=== PATIENT | male | born 1970 | race Caucasian/White ===

== ENCOUNTER 2021-01-04 10:59 | Inpatient (IN) | payer OTHER ==
[2021-01-04] VITALS (26 sets, daily range): BP systolic 96–146; BP diastolic 61–92
[~2021-01-04] VITALS: Ht 170.2 cm; Wt 62.9 kg
[~2021-01-04 10:59] MED LIST: ALBU18; ALPR0.5T7; ATOR20TA50; PRED-188; THEO1TAB6; ZAFI1TAB3; [UNRECOGNIZED DRUG - CODE]
[2021-01-04] MEDS ORDERED: SODIUM CHLORIDE 0.9% 1,000 ML IVB ONE (11:00)
[2021-01-04] MEDS ORDERED: methylPREDNISolone SOD SUCC 125 MG/2 ML VL IV ONE (11:00)
[2021-01-04] MEDS ORDERED: levoFLOXacin 500 MG/100 ML PREMIX BAG IV ONE (11:00)
[2021-01-04 11:42] LABS: Mean Corpuscular Hgb Conc. 33.4 g/dL (32.0-36.0); Red Cell Distribution Width 16.5 % (11.8-14.3)
[2021-01-04 11:44] LABS: Hemoglobin 8.3 g/dL (13.5-17.5); Mean Corpuscular Hemoglobin 28.3 pg (28.0-32.0); Mean Corpuscular Volume 84.7 fL (80.0-100.0); Red Blood Cells 2.95 10^6/uL (4.5-5.90)
[2021-01-04 11:50] LABS: Platelet Count (auto) 811 10^3/uL (140-450); White Blood Cell 35.1 10^3/uL (4.4-10.8)
[2021-01-04 11:52] LABS: Basophils % (manual) 0 (0.0-2.0); Blast Cells 0; Eosinophils % (manual) 0 (0-7); Reactive Lymphocytes 0
[2021-01-04 11:59] LABS: Lactic Acid w/Reflex 3.8 mmol/L (0.4-2.0)
[2021-01-04] MEDS ORDERED: NOREPINEPHRINE 8 MG/250ML KIT 250 ML IV ONE ×2 (11:59→12:02)
[2021-01-04 12:09] LABS: Anion Gap 17 (5-15); Blood Urea Nitrogen 21 mg/dL (7-18); Calcium 8.2 mg/dL (8.5-10.1); Carbon Dioxide 18 mmol/L (21-32); Chloride 93 mmol/L (98-107); Glucose 119 mg/dL (74-106); Potassium 3.4 mmol/L (3.5-5.1); Sodium 128 mmol/L (136-145)
[2021-01-04] MEDS: NOREPINEPHRINE 8 MG/250ML KIT 250 ML IV SCH (12:15)
[2021-01-04] MEDS ORDERED: SODIUM CHLORIDE 0.9% 1,000 ML IV ONE ×2 (12:15→13:30)
[2021-01-04 12:19] LABS: Alanine Aminotransferase 9 U/L (16-61); Albumin 2.6 g/dL (3.4-5.0); Alkaline Phosphatase 91 U/L (45-117); Aspartate Aminotransferase 16 U/L (15-37); BUN/Creatinine Ratio 9.2; Bilirubin, Total 0.9 mg/dL (0.2-1.0); Blood Alcohol < 3.0 mg/dL (0-5); GFR African American 39 mL/min; GFR Non-African American 32 mL/min
[2021-01-04 12:53] LABS: Band Neutrophils % (manual) 5; Lymphocytes % (manual) 3 (10.0-50.0); Metamyelocytes % 2; Monocytes % (manual) 3 (0-12); Myelocytes % 3; Promyelocytes % 1
[2021-01-04] MEDS ORDERED: LINEZOLID IV SCH (13:30)
[2021-01-04] MEDS ORDERED: ONDANSETRON HCL 4 MG/2 ML VIAL IV PRN (13:30)
[2021-01-04] MEDS ORDERED: NITROGLYCERIN 0.4 MG SL TAB SL PRN (13:30)
[2021-01-04] MEDS: POTASSIUM CHL 20MEQ/100ML 100 ML IV SCH ×2 (14:17→15:51)
[2021-01-04 14:47] LABS: Hemoglobin 7.3 g/dL (13.5-17.5)
[2021-01-04 14:49] LABS: Hematocrit 22.2 % (41.0-53.0)
[2021-01-04] MEDS ORDERED: MEROPENEM 500MG IVPB 50 ML IV SCH (15:00)
[2021-01-04 15:06] LABS: Urine Bacteria FEW /hpf (None Seen); Urine Blood 1+ /uL (Negative); Urine Mucus FEW (None Seen); Urine Specific Gravity 1.004 (1.001-1.035); Urine WBC 4 /hpf (0 - 3)
[2021-01-04] MEDS: MEROPENEM 1GM IVPB 100 ML IV SCH (15:51)
[2021-01-04] MEDS: HYDROmorphone HCL 2 MG/ML VL IV PRN ×2 (16:38→21:55)
[2021-01-04] MEDS: LINEZOLID 600MG/300ML 300 ML IV SCH (18:00)
[2021-01-04 18:35] LABS: Magnesium 1.9 mg/dL (1.6-2.6); Phosphorus 3.8 mg/dL (2.5-4.90)
[2021-01-04 18:36] LABS: Albumin 2.4 g/dL (3.4-5.0); Calcium 7.7 mg/dL (8.5-10.1); Potassium 3.8 mmol/L (3.5-5.1)
[2021-01-04 18:38] LABS: Bilirubin, Total 0.6 mg/dL (0.2-1.0); Total Protein 5.8 g/dL (6.4-8.2)
[2021-01-04 18:54] LABS: Protein, Urine 24.1 mg/dL (0.0-11.9)
[2021-01-04] MEDS ORDERED: LORazepam 2MG/ML-1ML VIAL IV PRN (20:15)
[2021-01-04] MEDS ORDERED: ATORVASTATIN 20 MG TAB PO SCH (22:00)
[2021-01-04 22:16] LABS: Hematocrit 23.5 % (41.0-53.0); Hemoglobin 7.6 g/dL (13.5-17.5)
[2021-01-04 22:36] LABS: Cholesterol 142 mg/dL (< 200)
[2021-01-04] MEDS: BUDESONIDE (INHALATION) 0.5 MG/2 ML NEB NEB SCH (22:36)
[2021-01-04 22:39] LABS: HDL Cholesterol 60 mg/dL (40-59); LDL Cholesterol 64 mg/dL (< 100); Triglycerides 122 mg/dL (< 150)
[2021-01-04 22:44] LABS: Folate (Folic Acid) 23.43 ng/mL (5.38-24)
[2021-01-04] MEDS: LORazepam 2MG/ML-1ML VIAL IV PRN (23:31)
[2021-01-05] VITALS (97 sets, daily range): BP systolic 82–154; BP diastolic 57–94
[2021-01-05 01:27] LABS: Hematocrit 21.9 % (41.0-53.0)
[2021-01-05 01:29] LABS: Hemoglobin 7.2 g/dL (13.5-17.5)
[2021-01-05] MEDS: MEROPENEM 1GM IVPB 100 ML IV SCH ×3 (02:53→23:02)
[2021-01-05 05:39] LABS: Hematocrit 19.6 % (41.0-53.0); Mean Corpuscular Hemoglobin 28.8 pg (28.0-32.0); Mean Corpuscular Hgb Conc. 33.7 g/dL (32.0-36.0); Mean Corpuscular Volume 85.5 fL (80.0-100.0); Platelet Count (auto) 734 10^3/uL (140-450); Red Blood Cells 2.29 10^6/uL (4.5-5.90); Red Cell Distribution Width 16.1 % (11.8-14.3); White Blood Cell 21.4 10^3/uL (4.4-10.8)
[2021-01-05 05:57] LABS: Potassium 3.3 mmol/L (3.5-5.1)
[2021-01-05 06:02] LABS: Hemoglobin 6.6 g/dL (13.5-17.5)
[2021-01-05 06:04] LABS: Basophils % (manual) 0 (0.0-2.0); Blast Cells 0; Eosinophils % (manual) 0 (0-7); Promyelocytes % 0; Reactive Lymphocytes 0
[2021-01-05 06:09] LABS: Albumin 2.3 g/dL (3.4-5.0); BUN/Creatinine Ratio 15.8; Bilirubin, Total 0.3 mg/dL (0.2-1.0); Calcium 7.9 mg/dL (8.5-10.1); Total Protein 5.4 g/dL (6.4-8.2)
[2021-01-05] MEDS: LINEZOLID 600MG/300ML 300 ML IV SCH ×2 (06:11→18:00)
[2021-01-05] MEDS: BUDESONIDE (INHALATION) 0.5 MG/2 ML NEB NEB SCH ×2 (06:26→22:21)
[2021-01-05] MEDS: ALBUTEROL SULF 2.5 MG/0.5ML(0.5%) NEB SOLN NEB PRN (06:26)
[2021-01-05] MEDS: POTASSIUM CHL 20MEQ/100ML 100 ML IV SCH ×2 (08:00→11:30)
[2021-01-05 08:37] LABS: Band Neutrophils % (manual) 4; Lymphocytes % (manual) 1 (10.0-50.0); Metamyelocytes % 1; Monocytes % (manual) 3 (0-12); Myelocytes % 1
[2021-01-05] MEDS: HYDROmorphone HCL 2 MG/ML VL IV PRN ×3 (09:14→20:00)
[2021-01-05] MEDS ORDERED: PANTOPRAZOLE 40 MG/10 ML VIAL INJ IV SCH (10:00)
[2021-01-05] MEDS: NOREPINEPHRINE 8 MG/250ML KIT 250 ML IV SCH (12:15)
[2021-01-05] MEDS ORDERED: SODIUM CHLORIDE 0.9% 1,000 ML IV ONE (19:45)
[2021-01-05] MEDS: PANTOPRAZOLE 40 MG/10 ML VIAL INJ IV SCH (22:10)
[2021-01-05] MEDS: SUCRALFATE 1 GM/10 ML ORAL SUSP PO SCH (22:10)
[2021-01-05] MEDS: ATORVASTATIN 20 MG TAB PO SCH (22:10)
[2021-01-05] MEDS: LORazepam 2MG/ML-1ML VIAL IV PRN (22:11)
[2021-01-06] VITALS (96 sets, daily range): BP systolic 82–130; BP diastolic 51–86
[2021-01-06 01:41] LABS: Hematocrit 25.5 % (41.0-53.0); Hemoglobin 8.7 g/dL (13.5-17.5)
[2021-01-06 05:57] LABS: Basophils # (auto) 0 10 ^3/uL (0-0.2); Eosinophils # (auto) 0 10 ^3/uL (0-0.8); Hemoglobin 8.9 g/dL (13.5-17.5); Monocytes # (auto) 2.1 10 ^3/uL (0-1.3)
[2021-01-06 05:59] LABS: Basophils % (auto) 0.1 % (0.0-2.0); Hematocrit 26.9 % (41.0-53.0); Lymphocytes # (auto) 1.7 10 ^3/uL (0.4-5.4); Lymphocytes % (auto) 8.3 % (10.0-50.0); Mean Corpuscular Hemoglobin 28.9 pg (28.0-32.0); Mean Corpuscular Hgb Conc. 33.2 g/dL (32.0-36.0); Mean Corpuscular Volume 87.2 fL (80.0-100.0); Monocytes % (auto) 10.4 % (0.0-12.0); Neutrophils # (auto) 16.4 10 ^3/uL (1.6-8.6); Neutrophils % (auto) 81.2 % (37.0-80.0); Nucleated Red Blood Cells % 0.1 %; Platelet Count (auto) 639 10^3/uL (140-450); Red Blood Cells 3.08 10^6/uL (4.5-5.90); Red Cell Distribution Width 15.5 % (11.8-14.3); White Blood Cell 20.2 10^3/uL (4.4-10.8)
[2021-01-06] MEDS: LINEZOLID 600MG/300ML 300 ML IV SCH ×2 (06:23→18:01)
[2021-01-06 06:24] LABS: Potassium 3.9 mmol/L (3.5-5.1)
[2021-01-06 06:38] LABS: Albumin 2.1 g/dL (3.4-5.0); Bilirubin, Total 0.7 mg/dL (0.2-1.0); Calcium 7.9 mg/dL (8.5-10.1); Phosphorus 2.6 mg/dL (2.5-4.90); Total Protein 4.9 g/dL (6.4-8.2)
[2021-01-06] MEDS: SUCRALFATE 1 GM/10 ML ORAL SUSP PO SCH ×4 (07:06→21:57)
[2021-01-06] MEDS: PANTOPRAZOLE 40 MG/10 ML VIAL INJ IV SCH ×2 (09:02→21:56)
[2021-01-06] MEDS: MEROPENEM 1GM IVPB 100 ML IV SCH ×2 (09:02→17:21)
[2021-01-06] MEDS: HYDROmorphone HCL 2 MG/ML VL IV PRN ×4 (09:03→22:38)
[2021-01-06] MEDS: BUDESONIDE (INHALATION) 0.5 MG/2 ML NEB NEB SCH ×2 (09:46→22:01)
[2021-01-06] MEDS: NOREPINEPHRINE 8 MG/250ML KIT 250 ML IV SCH (12:15)
[2021-01-06] MEDS: ATORVASTATIN 20 MG TAB PO SCH (21:56)
[2021-01-06] MEDS: LORazepam 2MG/ML-1ML VIAL IV PRN (21:57)
[2021-01-06] MEDS: ALBUTEROL SULF 2.5 MG/0.5ML(0.5%) NEB SOLN NEB PRN (22:01)
[2021-01-07] VITALS (84 sets, daily range): BP systolic 80–123; BP diastolic 48–83
[2021-01-07] MEDS: MEROPENEM 1GM IVPB 100 ML IV SCH ×3 (02:20→17:51)
[2021-01-07] MEDS: HYDROmorphone HCL 2 MG/ML VL IV PRN ×5 (03:45→22:19)
[2021-01-07 05:44] LABS: Hematocrit 27.4 % (41.0-53.0); Hemoglobin 9.1 g/dL (13.5-17.5)
[2021-01-07 06:13] LABS: Potassium 3.6 mmol/L (3.5-5.1)
[2021-01-07] MEDS: BUDESONIDE (INHALATION) 0.5 MG/2 ML NEB NEB SCH ×2 (06:19→18:43)
[2021-01-07] MEDS: LINEZOLID 600MG/300ML 300 ML IV SCH ×2 (06:25→16:48)
[2021-01-07] MEDS: SUCRALFATE 1 GM/10 ML ORAL SUSP PO SCH (06:25)
[2021-01-07 06:35] LABS: BUN/Creatinine Ratio 12.1; Calcium 8.2 mg/dL (8.5-10.1)
[2021-01-07] MEDS ORDERED: COLCHICINE 0.6 MG CAP PO ONE (09:45)
[2021-01-07] MEDS ORDERED: SILVER SULFADIAZINE 1 % TOPICAL CREAM 50GM TOP SCH (10:00)
[2021-01-07] MEDS: ALBUMIN 25% 100 ML IV SCH ×2 (10:56→16:47)
[2021-01-07] MEDS: LIDOCAINE HCL 5 % TOP OINT 35 GM TOP SCH (10:56)
[2021-01-07] MEDS: NOREPINEPHRINE 8 MG/250ML KIT 250 ML IV SCH (12:15)
[2021-01-07] MEDS: SUCRALFATE 1 GM TAB PO SCH ×3 (14:03→21:35)
[2021-01-07] MEDS ORDERED: FUROSEMIDE 20 MG/2 ML VIAL IV ONE (15:00)
[2021-01-07] MEDS: ALBUTEROL SULF 2.5 MG/0.5ML(0.5%) NEB SOLN NEB PRN (18:43)
[2021-01-07] MEDS: LORazepam 2MG/ML-1ML VIAL IV PRN (20:00)
[2021-01-07] MEDS: ATORVASTATIN 20 MG TAB PO SCH (21:35)
[2021-01-07] MEDS: PANTOPRAZOLE 40 MG TAB PO SCH (21:36)
[2021-01-08] VITALS (14 sets, daily range): BP systolic 86–105; BP diastolic 52–72
[2021-01-08] MEDS: ALBUMIN 25% 100 ML IV SCH (01:49)
[2021-01-08] MEDS: MEROPENEM 1GM IVPB 100 ML IV SCH ×3 (01:50→21:34)
[2021-01-08] MEDS: HYDROmorphone HCL 2 MG/ML VL IV PRN ×4 (04:10→20:23)
[2021-01-08] MEDS: LINEZOLID 600MG/300ML 300 ML IV SCH ×2 (06:24→18:56)
[2021-01-08] MEDS ORDERED: SUCRALFATE 1 GM TAB PO ONE (06:45)
[2021-01-08] MEDS: SUCRALFATE 1 GM/10 ML ORAL SUSP PO SCH ×4 (06:50→21:34)
[2021-01-08 07:23] LABS: Hematocrit 22.6 % (41.0-53.0); Hemoglobin 7.6 g/dL (13.5-17.5)
[2021-01-08 08:01] LABS: BUN/Creatinine Ratio 18.9; Uric Acid 7.5 mg/dL (3.5-7.2)
[2021-01-08 08:03] LABS: Potassium 2.8 mmol/L (3.5-5.1)
[2021-01-08] MEDS ORDERED: POTASSIUM CHLORIDE 40 MEQ, LIDOCAINE 1% (LOCAL ANESTH.) 4 ML in SODIUM CHL 0.9% 250 ML IV ONE (08:45)
[2021-01-08] MEDS: PANTOPRAZOLE 40 MG TAB PO SCH ×2 (10:00→21:33)
[2021-01-08 10:03] LABS: Eosinophils # (auto) 0.1 10 ^3/uL (0-0.8); Hemoglobin 8.6 g/dL (13.5-17.5); Lymphocytes # (auto) 1.6 10 ^3/uL (0.4-5.4); Lymphocytes % (auto) 10.9 % (10.0-50.0); Monocytes # (auto) 1.3 10 ^3/uL (0-1.3)
[2021-01-08 10:05] LABS: Basophils # (auto) 0.3 10 ^3/uL (0-0.2); Basophils % (auto) 2.2 % (0.0-2.0); Eosinophils % (auto) 0.5 % (0.0-7.0); Mean Corpuscular Hemoglobin 29.4 pg (28.0-32.0); Mean Corpuscular Hgb Conc. 34.3 g/dL (32.0-36.0); Mean Corpuscular Volume 85.6 fL (80.0-100.0); Monocytes % (auto) 9.2 % (0.0-12.0); Neutrophils % (auto) 77.2 % (37.0-80.0); Platelet Count (auto) 523 10^3/uL (140-450); Red Blood Cells 2.92 10^6/uL (4.5-5.90); Red Cell Distribution Width 15.8 % (11.8-14.3); White Blood Cell 14.3 10^3/uL (4.4-10.8)
[2021-01-08] MEDS: LORazepam 2MG/ML-1ML VIAL IV PRN ×2 (10:06→21:34)
[2021-01-08] MEDS: FUROSEMIDE 20 MG/2 ML VIAL IV SCH (10:10)
[2021-01-08] MEDS: BUDESONIDE (INHALATION) 0.5 MG/2 ML NEB NEB SCH ×2 (10:19→18:28)
[2021-01-08 10:37] LABS: Calcium 7.9 mg/dL (8.5-10.1); Potassium 3.1 mmol/L (3.5-5.1)
[2021-01-08 10:41] LABS: BUN/Creatinine Ratio 13.6
[2021-01-08] MEDS: NOREPINEPHRINE 8 MG/250ML KIT 250 ML IV SCH (11:37)
[2021-01-08] MEDS: ALBUTEROL SULF 2.5 MG/0.5ML(0.5%) NEB SOLN NEB PRN (18:27)
[2021-01-08] MEDS: ATORVASTATIN 20 MG TAB PO SCH (21:33)
[2021-01-09] MEDS: HYDROmorphone HCL 2 MG/ML VL IV PRN ×6 (00:29→21:57)
[2021-01-09 05:00] VITALS: BP 101/68
[2021-01-09] MEDS: BUDESONIDE (INHALATION) 0.5 MG/2 ML NEB NEB SCH ×2 (05:44→22:20)
[2021-01-09] MEDS: LINEZOLID 600MG/300ML 300 ML IV SCH ×2 (06:14→17:30)
[2021-01-09] MEDS: MEROPENEM 1GM IVPB 100 ML IV SCH ×3 (06:14→21:55)
[2021-01-09] MEDS: SUCRALFATE 1 GM/10 ML ORAL SUSP PO SCH ×4 (06:15→21:55)
[2021-01-09 07:51] LABS: Basophils # (auto) 0.1 10 ^3/uL (0-0.2); Eosinophils # (auto) 0.1 10 ^3/uL (0-0.8); Hemoglobin 8.8 g/dL (13.5-17.5)
[2021-01-09 07:53] LABS: Basophils % (auto) 0.7 % (0.0-2.0); Eosinophils % (auto) 0.9 % (0.0-7.0); Lymphocytes # (auto) 1.7 10 ^3/uL (0.4-5.4); Lymphocytes % (auto) 10.7 % (10.0-50.0); Mean Corpuscular Hemoglobin 29.3 pg (28.0-32.0); Mean Corpuscular Hgb Conc. 33.9 g/dL (32.0-36.0); Mean Corpuscular Volume 86.3 fL (80.0-100.0); Monocytes # (auto) 1.3 10 ^3/uL (0-1.3); Monocytes % (auto) 7.9 % (0.0-12.0); Neutrophils # (auto) 12.9 10 ^3/uL (1.6-8.6); Neutrophils % (auto) 79.8 % (37.0-80.0); Platelet Count (auto) 504 10^3/uL (140-450); Red Blood Cells 3.01 10^6/uL (4.5-5.90); Red Cell Distribution Width 15.9 % (11.8-14.3); White Blood Cell 16.1 10^3/uL (4.4-10.8)
[2021-01-09 08:04] LABS: Calcium 7.8 mg/dL (8.5-10.1)
[2021-01-09 08:07] LABS: BUN/Creatinine Ratio 15.8; Magnesium 1.4 mg/dL (1.6-2.6)
[2021-01-09 09:00] VITALS: BP 106/76
[2021-01-09] MEDS ORDERED: COLCHICINE 0.6 MG CAP PO ONE (10:15)
[2021-01-09] MEDS: FUROSEMIDE 20 MG/2 ML VIAL IV SCH (10:27)
[2021-01-09] MEDS: PANTOPRAZOLE 40 MG TAB PO SCH ×2 (10:28→21:56)
[2021-01-09] MEDS ORDERED: POTASSIUM CHLORIDE 40 MEQ, LIDOCAINE 1% (LOCAL ANESTH.) 4 ML in SODIUM CHL 0.9% 250 ML IV ONE (10:30)
[2021-01-09] MEDS ORDERED: POTASSIUM PHOSPHATE 26.4 MEQ in SODIUM CHL 0.9% 100 ML IV ONE (10:30)
[2021-01-09] MEDS: MAGNESIUM SULFATE 1GM/100ML 100 ML IV SCH ×3 (11:30→17:29)
[2021-01-09] MEDS: LIDOCAINE HCL 5 % TOP OINT 35 GM TOP SCH (11:31)
[2021-01-09 13:00] VITALS: BP 99/70
[2021-01-09] MEDS ORDERED: ERGOCALCIFEROL 50,000 UNIT(1.25MG) CAP PO SCH (14:45)
[2021-01-09 17:00] VITALS: BP 110/70
[2021-01-09] MEDS: ATORVASTATIN 20 MG TAB PO SCH (21:56)
[2021-01-09 22:03] VITALS: BP 101/68
[2021-01-09] MEDS: LORazepam 2MG/ML-1ML VIAL IV PRN (23:03)
[2021-01-10] MEDS: HYDROmorphone HCL 2 MG/ML VL IV PRN ×4 (01:58→18:15)
[2021-01-10 04:45] VITALS: BP 101/61
[2021-01-10] MEDS: MEROPENEM 1GM IVPB 100 ML IV SCH ×2 (06:33→16:07)
[2021-01-10] MEDS: SUCRALFATE 1 GM/10 ML ORAL SUSP PO SCH ×2 (06:34→11:45)
[2021-01-10] MEDS: LINEZOLID 600MG/300ML 300 ML IV SCH (06:34)
[2021-01-10 07:13] LABS: Basophils # (auto) 0.1 10 ^3/uL (0-0.2); Eosinophils # (auto) 0.3 10 ^3/uL (0-0.8); Eosinophils % (auto) 1.8 % (0.0-7.0); Lymphocytes # (auto) 1.5 10 ^3/uL (0.4-5.4)
[2021-01-10 07:23] LABS: Hematocrit 26.4 % (41.0-53.0); Hemoglobin 8.9 g/dL (13.5-17.5); Lymphocytes % (auto) 10.5 % (10.0-50.0); Mean Corpuscular Hemoglobin 29.1 pg (28.0-32.0); Mean Corpuscular Hgb Conc. 33.8 g/dL (32.0-36.0); Mean Corpuscular Volume 86.2 fL (80.0-100.0); Monocytes # (auto) 1.1 10 ^3/uL (0-1.3); Monocytes % (auto) 7.3 % (0.0-12.0); Neutrophils # (auto) 11.5 10 ^3/uL (1.6-8.6); Neutrophils % (auto) 79.4 % (37.0-80.0); Platelet Count (auto) 484 10^3/uL (140-450); Red Blood Cells 3.07 10^6/uL (4.5-5.90); Red Cell Distribution Width 15.9 % (11.8-14.3); White Blood Cell 14.5 10^3/uL (4.4-10.8)
[2021-01-10 07:24] LABS: BUN/Creatinine Ratio 14.7; Calcium 7.8 mg/dL (8.5-10.1); Magnesium 2.2 mg/dL (1.6-2.6); Phosphorus 2.2 mg/dL (2.5-4.90); Potassium 3.2 mmol/L (3.5-5.1)
[2021-01-10 07:41] VITALS: BP 101/61
[2021-01-10 09:00] VITALS: BP 109/73
[2021-01-10] MEDS ORDERED: MAGNESIUM OXIDE 400 MG TAB PO SCH (10:00)
[2021-01-10] MEDS ORDERED: COLCHICINE 0.6 MG CAP PO SCH (10:00)
[2021-01-10] MEDS: BUDESONIDE (INHALATION) 0.5 MG/2 ML NEB NEB SCH (10:08)
[2021-01-10] MEDS: ALBUTEROL SULF 2.5 MG/0.5ML(0.5%) NEB SOLN NEB PRN (10:08)
[2021-01-10] MEDS ORDERED: POTASSIUM PHOSPHATE 26.4 MEQ in SODIUM CHL 0.9% 100 ML IV ONE (10:15)
[2021-01-10] MEDS: PANTOPRAZOLE 40 MG TAB PO SCH (11:44)
[2021-01-10] MEDS: FUROSEMIDE 20 MG/2 ML VIAL IV SCH (11:44)
[2021-01-10] MEDS: LORazepam 2MG/ML-1ML VIAL IV PRN (16:10)
[2021-01-10 16:56] VITALS: BP 106/72
== END 2021-01-10 18:44 | DRG 871 ==
LOC: ER 10:59 → EDBD 10:59 → TELE 11:00 → DOU IN ICU 17:25 → TELE-CENTR 01-08 13:56
PROVIDERS: ADMIT Family Medicine; ATTEND Internal Medicine
PROC: 06HY33Z Insertion of Infusion Device into Lower Vein, Percutaneous Approach (ICD-10-PCS; 2021-01-04)
PROC: 4A143B0 Monitoring of Venous Pressure, Central, Percutaneous Approach (ICD-10-PCS; 2021-01-04)
PROC: 30233N1 Transfusion of Nonautologous Red Blood Cells into Peripheral Vein, Percutaneous Approach (ICD-10-PCS; principal; 2021-01-05)
DX: A41.9 Sepsis, unspecified organism (principal); R65.21 Severe sepsis with septic shock; I21.A1 Myocardial infarction type 2; G92 Toxic encephalopathy; K26.4 Chronic or unspecified duodenal ulcer with hemorrhage; N17.0 Acute kidney failure with tubular necrosis; E87.1 Hypo-osmolality and hyponatremia; E87.2 Acidosis; J96.10 Chronic respiratory failure, unspecified whether with hypoxia or hypercapnia; D62 Acute posthemorrhagic anemia; E44.0 Moderate protein-calorie malnutrition; J98.11 Atelectasis; I13.0 Hypertensive heart and chronic kidney disease with heart failure and stage 1 through stage 4 chronic kidney disease, or unspecified chronic kidney disease; E87.6 Hypokalemia; E87.8 Other disorders of electrolyte and fluid balance, not elsewhere classified; Z20.822 Contact with and (suspected) exposure to COVID-19; D47.3 Essential (hemorrhagic) thrombocythemia; Z86.73 Personal history of transient ischemic attack (TIA), and cerebral infarction without residual deficits; E55.9 Vitamin D deficiency, unspecified; E78.5 Hyperlipidemia, unspecified; F17.210 Nicotine dependence, cigarettes, uncomplicated; G89.29 Other chronic pain; I50.9 Heart failure, unspecified; K21.00 Gastro-esophageal reflux disease with esophagitis, without bleeding; K29.70 Gastritis, unspecified, without bleeding; E83.42 Hypomagnesemia; F41.9 Anxiety disorder, unspecified; M19.90 Unspecified osteoarthritis, unspecified site; T38.0X5A Adverse effect of glucocorticoids and synthetic analogues, initial encounter; M81.0 Age-related osteoporosis without current pathological fracture; E11.22 Type 2 diabetes mellitus with diabetic chronic kidney disease; K29.80 Duodenitis without bleeding; E11.42 Type 2 diabetes mellitus with diabetic polyneuropathy; K44.9 Diaphragmatic hernia without obstruction or gangrene; M06.9 Rheumatoid arthritis, unspecified; M10.9 Gout, unspecified; Z79.52 Long term (current) use of systemic steroids; Z79.899 Other long term (current) drug therapy; Z82.49 Family history of ischemic heart disease and other diseases of the circulatory system; Z83.3 Family history of diabetes mellitus; Z87.442 Personal history of urinary calculi; Z88.5 Allergy status to narcotic agent; Z88.6 Allergy status to analgesic agent; Z88.8 Allergy status to other drugs, medicaments and biological substances; Z88.2 Allergy status to sulfonamides; Y92.89 Other specified places as the place of occurrence of the external cause; Z68.21 Body mass index [BMI] 21.0-21.9, adult; N18.32 Chronic kidney disease, stage 3b; J44.9 Chronic obstructive pulmonary disease, unspecified
CPT/HCPCS: 36415; 36556; 36600; 51702; 70450; 71045; 71250; 73110; 74176; 76775; 80048; 80053; 80061; 80198; 80307; 80320; 81001; 82306; 82570; 82607; 82728; 82746; 82805; 83605; 83735; 83880; 84100; 84132; 84156; 84300; 84443; 84484; 84550; 85007; 85014; 85018; 85025; 85027; 85379; 86141; 86850; 86900; 86901; 86920; 87040; 87081; 87086; 87205; 87426; 93005; 93306; 93886; 94640; 95819; 96365; 96366; 96367; 96368; 96375; 99291; C9113; G0378; J1956; J2001; J2185; J3480; P9047

== ENCOUNTER 2021-01-30 08:17 | Inpatient (IN) | payer OTHER ==
[2021-01-30] VITALS (48 sets, daily range): BP systolic 63–123; BP diastolic 43–83
[~2021-01-30] VITALS: Ht 165.1 cm; Wt 65.8 kg
[2021-01-30] MEDS ORDERED: SUCCINYLCHOLINE CHLORIDE 20 MG/ML 10ML VIAL IV ONE ×3 (08:22→08:45)
[2021-01-30] MEDS ORDERED: ETOMIDATE (2MG/ML) 20ML VIAL IV ONE ×3 (08:22→08:45)
[2021-01-30] MEDS ORDERED: MIDAZOLAM DRIP 50 mg/50mL 50 ML IV ONE (08:25)
[2021-01-30] MEDS ORDERED: NOREPINEPHRINE 8 MG/250ML KIT 250 ML IV ONE (08:25)
[2021-01-30] MEDS: MIDAZOLAM DRIP 50 mg/50mL 50 ML IV SCH ×4 (08:40→17:40)
[2021-01-30] MEDS: NOREPINEPHRINE 8 MG/250ML KIT 250 ML IV SCH ×3 (08:40→17:08)
[2021-01-30] MEDS ORDERED: NOREPINEPHRINE 8 MG/250ML KIT 250 ML IV SCH (08:45)
[2021-01-30] MEDS ORDERED: MIDAZOLAM DRIP 50 mg/50mL 50 ML IV SCH (08:45)
[2021-01-30] MEDS ORDERED: SODIUM CHLORIDE 0.9% 1,000 ML IV ONE ×3 (09:00→11:45)
[2021-01-30] MEDS ORDERED: AZITHROMYCIN 500MG/ 250ML 250 ML IV ONE (09:00)
[2021-01-30] MEDS ORDERED: cefTRIAXone 1GM/50ML D5W 50 ML IV ONE (09:00)
[2021-01-30 09:31] LABS: Mean Corpuscular Volume 89.3 fL (80.0-100.0)
[2021-01-30 09:34] LABS: Hematocrit 27.8 % (41.0-53.0); Hemoglobin 8.6 g/dL (13.5-17.5); Mean Corpuscular Hemoglobin 27.6 pg (28.0-32.0); Mean Corpuscular Hgb Conc. 30.8 g/dL (32.0-36.0); Red Blood Cells 3.11 10^6/uL (4.5-5.90); Red Cell Distribution Width 17.8 % (11.8-14.3)
[2021-01-30 09:49] LABS: Calcium 7.9 mg/dL (8.5-10.1); Magnesium 2.5 mg/dL (1.6-2.6)
[2021-01-30 09:50] LABS: INR 1.79 (0.9-1.15); Partial Thromboplastin Time 30.6 sec (23.0-31.2)
[2021-01-30 09:52] LABS: White Blood Cell 40.3 10^3/uL (4.4-10.8)
[2021-01-30 09:53] LABS: Platelet Count (auto) 975 10^3/uL (140-450)
[2021-01-30 09:54] LABS: Basophils % (manual) 0 (0.0-2.0); Blast Cells 0; Eosinophils % (manual) 0 (0-7); Promyelocytes % 0; Reactive Lymphocytes 0
[2021-01-30 09:56] LABS: BUN/Creatinine Ratio 5.8; Bilirubin, Total 0.4 mg/dL (0.2-1.0); Total Protein 5.1 g/dL (6.4-8.2)
[2021-01-30 09:59] LABS: Urine Bacteria FEW /hpf (None Seen); Urine Blood 1+ /uL (Negative); Urine Budding Yeast OCCASIONAL /hpf (None Seen); Urine Hyaline Cast FEW /lpf (0 - 2); Urine Specific Gravity 1.017 (1.001-1.035); Urine Sperm PRESENT /hpf (None Seen); Urine WBC 138 /hpf (0 - 3)
[2021-01-30] MEDS ORDERED: PANTOPRAZOLE 40mg/50ML NS AE 50 ML IV ONE (10:00)
[2021-01-30 10:02] LABS: Lactic Acid w/Reflex 5.7 mmol/L (0.4-2.0)
[2021-01-30 10:06] LABS: Potassium 5.8 mmol/L (3.5-5.1)
[2021-01-30] MEDS: PHENYLEPHRINE IV 250 ML IV SCH ×4 (10:07→18:54)
[2021-01-30] MEDS ORDERED: ALBUTEROL SULF 2.5 MG/0.5ML(0.5%) NEB SOLN NEB ONE (10:30)
[2021-01-30] MEDS ORDERED: DEXTROSE (50%) 50ML SYRG IV ONE (10:30)
[2021-01-30] MEDS ORDERED: SODIUM ZIRCONIUM CYCL 10 GM PAK PO ONE (10:30)
[2021-01-30] MEDS ORDERED: CALCIUM GLUC 1,000mg/50ml-NS 50 ML IV ONE (10:30)
[2021-01-30] MEDS ORDERED: InsuLIN REG 1unit/0.01ml Soln (100units/ml) IV ONE (10:30)
[2021-01-30] MEDS ORDERED: SODIUM BICARBONATE 8.4% INJ 50ML SYRINGE IV ONE (10:30)
[2021-01-30] MEDS ORDERED: FUROSEMIDE 20 MG/2 ML VIAL IV ONE (10:30)
[2021-01-30] MEDS ORDERED: VANCOMYCIN PER PHARMACY 0 MG IV SCH (11:15)
[2021-01-30] MEDS ORDERED: VANCOMYCIN 1GM/250ML 250 ML IV ONE (11:30)
[2021-01-30] MEDS: VASOPRESSIN 50 UNITS in D5W 5% 247.5 ML IV SCH (11:32)
[2021-01-30 11:36] LABS: Band Neutrophils % (manual) 10; Lymphocytes % (manual) 3 (10.0-50.0); Metamyelocytes % 1; Monocytes % (manual) 5 (0-12); Myelocytes % 1
[2021-01-30] MEDS ORDERED: ENOXAPARIN SOD 60 MG/0.6 ML SYRINGE SC ONE (12:15)
[2021-01-30] MEDS ORDERED: NITROGLYCERIN 0.4 MG SL TAB SL PRN (12:30)
[2021-01-30] MEDS ORDERED: SODIUM BICARBONATE 50ML VIAL 150 ML in D5W 5% 1,000 ML IV ONE (12:30)
[2021-01-30] MEDS ORDERED: MORPHINE SULF INJ 2 MG/ML SYRINGE 1ML IV PRN (12:30)
[2021-01-30] MEDS: EPINEPHrine HCL 250 ML IV SCH (12:30)
[2021-01-30 13:57] LABS: Calcium 7.7 mg/dL (8.5-10.1); Potassium 4.5 mmol/L (3.5-5.1)
[2021-01-30] MEDS: DOXYCYCLINE 100MG/250ML 250 ML IV SCH (14:30)
[2021-01-30] MEDS: HYDROCORTISONE SOD SUCC 100 MG/2ML INJ VIAL IV SCH ×2 (14:30→21:33)
[2021-01-30] MEDS: fentaNYL Drip 2500mCg/250mlNS 250 ML IV SCH (15:22)
[2021-01-30 16:36] LABS: Hematocrit 30.4 % (41.0-53.0); Hemoglobin 9.2 g/dL (13.5-17.5)
[2021-01-31] VITALS (105 sets, daily range): BP systolic 84–137; BP diastolic 48–87
[2021-01-31] MEDS: DOXYCYCLINE 100MG/250ML 250 ML IV SCH ×2 (00:21→11:09)
[2021-01-31] MEDS: NOREPINEPHRINE 8 MG/250ML KIT 250 ML IV SCH ×4 (00:22→13:58)
[2021-01-31] MEDS: MIDAZOLAM DRIP 50 mg/50mL 50 ML IV SCH ×5 (00:22→14:50)
[2021-01-31] MEDS: PHENYLEPHRINE IV 250 ML IV SCH ×6 (02:13→18:03)
[2021-01-31 04:51] LABS: Hematocrit 27.8 % (41.0-53.0); Hemoglobin 8.6 g/dL (13.5-17.5); Mean Corpuscular Hemoglobin 26.8 pg (28.0-32.0); Mean Corpuscular Hgb Conc. 30.8 g/dL (32.0-36.0); Mean Corpuscular Volume 86.9 fL (80.0-100.0); Platelet Count (auto) 604 10^3/uL (140-450)
[2021-01-31 04:56] LABS: White Blood Cell 52.7 10^3/uL (4.4-10.8)
[2021-01-31 04:57] LABS: Eosinophils % (manual) 0 (0-7)
[2021-01-31 04:58] LABS: Basophils % (manual) 0 (0.0-2.0); Blast Cells 0; Promyelocytes % 0; Reactive Lymphocytes 0
[2021-01-31 05:04] LABS: Albumin 1.7 g/dL (3.4-5.0); BUN/Creatinine Ratio 7.8; Calcium 6.9 mg/dL (8.5-10.1); Potassium 3.6 mmol/L (3.5-5.1)
[2021-01-31 05:11] LABS: Bilirubin, Total 0.2 mg/dL (0.2-1.0); Total Protein 4.8 g/dL (6.4-8.2)
[2021-01-31] MEDS: HYDROCORTISONE SOD SUCC 100 MG/2ML INJ VIAL IV SCH ×3 (05:29→22:00)
[2021-01-31 05:54] LABS: Band Neutrophils % (manual) 47; Lymphocytes % (manual) 5 (10.0-50.0); Metamyelocytes % 1; Monocytes % (manual) 5 (0-12); Myelocytes % 2
[2021-01-31] MEDS ORDERED: cefTRIAXone 1GM/50ML D5W 50 ML IV SCH (09:00)
[2021-01-31] MEDS: SODIUM CHLORIDE 0.9% 1,000 ML IV SCH ×2 (09:43→18:02)
[2021-01-31] MEDS ORDERED: ENOXAPARIN SOD 30 MG/0.3 ML SYRINGE SC SCH (10:00)
[2021-01-31] MEDS ORDERED: DEXTROSE (50%) 50ML SYRG IV PRN (10:30)
[2021-01-31] MEDS ORDERED: ENOXAPARIN SOD 100 MG/1 ML SYRINGE SC ONE (10:30)
[2021-01-31] MEDS ORDERED: ENOXAPARIN SOD 80 MG/0.8ML SYRINGE SC ONE (10:45)
[2021-01-31] MEDS: VASOPRESSIN 50 UNITS in D5W 5% 247.5 ML IV SCH (11:00)
[2021-01-31] MEDS: ACCU-CHEK COMFORT CURVE STRIP VI SCH ×3 (11:24→20:00)
[2021-01-31] MEDS: InsuLIN REG 1unit/0.01ml Soln (100units/ml) SC SCH ×3 (11:26→20:00)
[2021-01-31 11:55] LABS: Lactic Acid w/Reflex 3.1 mmol/L (0.4-2.0)
[2021-01-31] MEDS: EPINEPHrine HCL 250 ML IV SCH (12:30)
[2021-01-31] MEDS: fentaNYL Drip 2500mCg/250mlNS 250 ML IV SCH (14:45)
[2021-01-31] MEDS ORDERED: FLUCONAZOLE 200MG/100ML 100 ML IV ONE (17:30)
[2021-01-31] MEDS: VANCOMYCIN HCL 125MG/5ML ORAL SOL PO SCH ×2 (17:48→22:00)
[2021-01-31 18:51] LABS: Lactic Acid w/Reflex 2.5 mmol/L (0.4-2.0)
[2021-01-31] MEDS: metroNIDAZOLE 500MG/100ML 100 ML IV SCH (22:00)
[2021-01-31] MEDS: ESOMEPRAZOLE 40 MG/5ml VIAL INJ IV SCH (22:00)
[2021-01-31] MEDS: MEROPENEM 500MG IVPB 50 ML IV SCH (22:01)
[2021-02-01] VITALS (104 sets, daily range): BP systolic 80–141; BP diastolic 49–87
[2021-02-01] MEDS: MIDAZOLAM DRIP 50 mg/50mL 50 ML IV SCH ×8 (00:12→23:24)
[2021-02-01] MEDS: ACCU-CHEK COMFORT CURVE STRIP VI SCH ×6 (00:13→23:47)
[2021-02-01] MEDS: NOREPINEPHRINE 8 MG/250ML KIT 250 ML IV SCH ×5 (03:22→21:05)
[2021-02-01] MEDS: InsuLIN REG 1unit/0.01ml Soln (100units/ml) SC SCH ×6 (03:50→23:47)
[2021-02-01 04:27] LABS: Hematocrit 24.4 % (41.0-53.0); Mean Corpuscular Hemoglobin 28.1 pg (28.0-32.0); Mean Corpuscular Hgb Conc. 32.6 g/dL (32.0-36.0); Platelet Count (auto) 426 10^3/uL (140-450); Red Blood Cells 2.83 10^6/uL (4.5-5.90); Red Cell Distribution Width 17.7 % (11.8-14.3)
[2021-02-01 04:45] LABS: Calcium 6.3 mg/dL (8.5-10.1); Potassium 3.4 mmol/L (3.5-5.1)
[2021-02-01 04:51] LABS: Albumin 1.5 g/dL (3.4-5.0); BUN/Creatinine Ratio 10.6; Bilirubin, Total 0.3 mg/dL (0.2-1.0); Magnesium 1.4 mg/dL (1.6-2.6); Phosphorus 4.1 mg/dL (2.5-4.90); Total Protein 4.4 g/dL (6.4-8.2)
[2021-02-01 05:18] LABS: White Blood Cell 37.1 10^3/uL (4.4-10.8)
[2021-02-01 05:19] LABS: Basophils % (manual) 0 (0.0-2.0); Blast Cells 0; Eosinophils % (manual) 0 (0-7); Promyelocytes % 0; Reactive Lymphocytes 0
[2021-02-01] MEDS: SODIUM CHLORIDE 0.9% 1,000 ML IV SCH (05:36)
[2021-02-01 05:58] LABS: Myelocytes % 1
[2021-02-01 05:59] LABS: Metamyelocytes % 1; Monocytes % (manual) 3 (0-12)
[2021-02-01 06:00] LABS: Band Neutrophils % (manual) 22; Lymphocytes % (manual) 1 (10.0-50.0)
[2021-02-01] MEDS: VANCOMYCIN HCL 125MG/5ML ORAL SOL PO SCH ×4 (06:10→21:06)
[2021-02-01] MEDS: metroNIDAZOLE 500MG/100ML 100 ML IV SCH ×3 (06:10→21:05)
[2021-02-01] MEDS: HYDROCORTISONE SOD SUCC 100 MG/2ML INJ VIAL IV SCH ×3 (06:10→21:05)
[2021-02-01] MEDS: fentaNYL Drip 2500mCg/250mlNS 250 ML IV SCH (06:12)
[2021-02-01] MEDS: FLUCONAZOLE 200MG/100ML 100 ML IV SCH (09:53)
[2021-02-01] MEDS ORDERED: ENOXAPARIN SOD 80 MG/0.8ML SYRINGE SC SCH (10:00)
[2021-02-01] MEDS: MEROPENEM 500MG IVPB 50 ML IV SCH ×2 (10:52→21:05)
[2021-02-01] MEDS: ESOMEPRAZOLE 40 MG/5ml VIAL INJ IV SCH ×2 (10:53→21:47)
[2021-02-01] MEDS: VASOPRESSIN 50 UNITS in D5W 5% 247.5 ML IV SCH (11:00)
[2021-02-01] MEDS: EPINEPHrine HCL 250 ML IV SCH (12:23)
[2021-02-01] MEDS ORDERED: DEXTROSE (50%) 50ML SYRG IV PRN (13:00)
[2021-02-01] MEDS: ALBUMIN 25% 100 ML IV SCH ×2 (13:19→21:04)
[2021-02-01] MEDS: MAGNESIUM SULFATE 1GM/100ML 100 ML IV SCH ×3 (18:13→20:55)
[2021-02-01] MEDS: PHENYLEPHRINE IV 250 ML IV SCH (20:20)
[2021-02-02] VITALS (104 sets, daily range): BP systolic 94–128; BP diastolic 60–91
[2021-02-02] MEDS: NOREPINEPHRINE 8 MG/250ML KIT 250 ML IV SCH ×6 (01:18→23:33)
[2021-02-02] MEDS: MIDAZOLAM DRIP 50 mg/50mL 50 ML IV SCH ×7 (02:20→22:20)
[2021-02-02] MEDS: ALBUMIN 25% 100 ML IV SCH (04:22)
[2021-02-02] MEDS: PHENYLEPHRINE IV 250 ML IV SCH ×3 (04:23→21:20)
[2021-02-02 04:27] LABS: Mean Corpuscular Hemoglobin 27.6 pg (28.0-32.0); Mean Corpuscular Hgb Conc. 31.9 g/dL (32.0-36.0); Mean Corpuscular Volume 86.6 fL (80.0-100.0)
[2021-02-02 04:29] LABS: Hematocrit 21.5 % (41.0-53.0); Platelet Count (auto) 288 10^3/uL (140-450); Red Blood Cells 2.48 10^6/uL (4.5-5.90); Red Cell Distribution Width 17.9 % (11.8-14.3)
[2021-02-02 04:46] LABS: Calcium 6.7 mg/dL (8.5-10.1); Potassium 3.2 mmol/L (3.5-5.1)
[2021-02-02 04:52] LABS: Albumin 2.3 g/dL (3.4-5.0); BUN/Creatinine Ratio 13.4; Bilirubin, Total 0.4 mg/dL (0.2-1.0); Magnesium 2.4 mg/dL (1.6-2.6); Phosphorus 4.2 mg/dL (2.5-4.90); Total Protein 4.7 g/dL (6.4-8.2)
[2021-02-02 05:11] LABS: Hemoglobin 6.8 g/dL (13.5-17.5)
[2021-02-02 05:13] LABS: Basophils % (manual) 0 (0.0-2.0); Blast Cells 0; Eosinophils % (manual) 0 (0-7); Myelocytes % 0; Promyelocytes % 0; Reactive Lymphocytes 0
[2021-02-02] MEDS ORDERED: POTASSIUM CHL 20MEQ/100ML 100 ML IV ONE (05:30)
[2021-02-02 05:34] LABS: Band Neutrophils % (manual) 4; Lymphocytes % (manual) 4 (10.0-50.0); Metamyelocytes % 1; Monocytes % (manual) 7 (0-12)
[2021-02-02] MEDS: HYDROCORTISONE SOD SUCC 100 MG/2ML INJ VIAL IV SCH (05:39)
[2021-02-02] MEDS: metroNIDAZOLE 500MG/100ML 100 ML IV SCH ×4 (05:40→22:00)
[2021-02-02] MEDS: ACCU-CHEK COMFORT CURVE STRIP VI SCH ×3 (05:41→18:00)
[2021-02-02] MEDS: InsuLIN REG 1unit/0.01ml Soln (100units/ml) SC SCH ×3 (05:41→18:00)
[2021-02-02] MEDS: VANCOMYCIN HCL 125MG/5ML ORAL SOL PO SCH ×4 (05:41→22:00)
[2021-02-02] MEDS: FLUCONAZOLE 200MG/100ML 100 ML IV SCH (09:34)
[2021-02-02] MEDS: MEROPENEM 500MG IVPB 50 ML IV SCH (09:38)
[2021-02-02] MEDS: ESOMEPRAZOLE 40 MG/5ml VIAL INJ IV SCH ×2 (09:38→22:00)
[2021-02-02] MEDS: VASOPRESSIN 50 UNITS in D5W 5% 247.5 ML IV SCH (11:00)
[2021-02-02] MEDS: EPINEPHrine HCL 250 ML IV SCH (12:30)
[2021-02-02] MEDS: fentaNYL Drip 2500mCg/250mlNS 250 ML IV SCH (19:00)
[2021-02-02] MEDS: MEROPENEM 1GM IVPB 100 ML IV SCH (21:00)
[2021-02-02] MEDS: ALBUMIN 25% 50 ML IV SCH (23:00)
[2021-02-03] VITALS (93 sets, daily range): BP systolic 107–142; BP diastolic 74–106
[2021-02-03] MEDS: InsuLIN REG 1unit/0.01ml Soln (100units/ml) SC SCH ×5 (00:30→22:48)
[2021-02-03] MEDS: ACCU-CHEK COMFORT CURVE STRIP VI SCH ×5 (00:30→22:48)
[2021-02-03] MEDS: MIDAZOLAM DRIP 50 mg/50mL 50 ML IV SCH ×7 (01:40→21:40)
[2021-02-03] MEDS: NOREPINEPHRINE 8 MG/250ML KIT 250 ML IV SCH ×5 (04:00→21:48)
[2021-02-03 04:36] LABS: Hematocrit 27.7 % (41.0-53.0); Hemoglobin 9.3 g/dL (13.5-17.5); Mean Corpuscular Hemoglobin 28.7 pg (28.0-32.0); Mean Corpuscular Hgb Conc. 33.4 g/dL (32.0-36.0); Platelet Count (auto) 184 10^3/uL (140-450); Red Blood Cells 3.22 10^6/uL (4.5-5.90); Red Cell Distribution Width 16.3 % (11.8-14.3); White Blood Cell 22.7 10^3/uL (4.4-10.8)
[2021-02-03 04:49] LABS: Basophils % (manual) 0 (0.0-2.0); Blast Cells 0; Eosinophils % (manual) 0 (0-7); Myelocytes % 0; Promyelocytes % 0; Reactive Lymphocytes 0
[2021-02-03 04:53] LABS: Albumin 2.6 g/dL (3.4-5.0); Calcium 7.1 mg/dL (8.5-10.1); Potassium 3.1 mmol/L (3.5-5.1)
[2021-02-03 04:58] LABS: BUN/Creatinine Ratio 18.5; Bilirubin, Total 0.5 mg/dL (0.2-1.0); Total Protein 4.6 g/dL (6.4-8.2)
[2021-02-03] MEDS: PHENYLEPHRINE IV 250 ML IV SCH ×2 (05:40→14:00)
[2021-02-03] MEDS ORDERED: POTASSIUM CHL 20MEQ/100ML 100 ML IV ONE (05:45)
[2021-02-03] MEDS: metroNIDAZOLE 500MG/100ML 100 ML IV SCH ×3 (06:03→19:58)
[2021-02-03] MEDS: VANCOMYCIN HCL 125MG/5ML ORAL SOL PO SCH ×4 (06:03→19:59)
[2021-02-03] MEDS: ALBUMIN 25% 50 ML IV SCH ×2 (06:03→13:01)
[2021-02-03] MEDS: MEROPENEM 1GM IVPB 100 ML IV SCH ×2 (07:57→19:58)
[2021-02-03 08:49] LABS: Band Neutrophils % (manual) 8; Lymphocytes % (manual) 5 (10.0-50.0); Metamyelocytes % 2; Monocytes % (manual) 7 (0-12)
[2021-02-03] MEDS: ESOMEPRAZOLE 40 MG/5ml VIAL INJ IV SCH ×2 (09:50→19:58)
[2021-02-03] MEDS: FLUCONAZOLE 200MG/100ML 100 ML IV SCH (09:50)
[2021-02-03] MEDS: VASOPRESSIN 50 UNITS in D5W 5% 247.5 ML IV SCH (09:50)
[2021-02-03] MEDS: EPINEPHrine HCL 250 ML IV SCH (11:54)
[2021-02-03] MEDS: fentaNYL Drip 2500mCg/250mlNS 250 ML IV SCH (14:45)
[2021-02-03] MEDS: POTASSIUM CHL 20MEQ/100ML 100 ML IV SCH ×2 (16:17→18:12)
[2021-02-04] VITALS (57 sets, daily range): BP systolic 114–141; BP diastolic 79–101
[2021-02-04] MEDS: metroNIDAZOLE 500MG/100ML 100 ML IV SCH ×3 (05:28→22:00)
[2021-02-04] MEDS: InsuLIN REG 1unit/0.01ml Soln (100units/ml) SC SCH ×3 (05:29→18:00)
[2021-02-04] MEDS: VANCOMYCIN HCL 125MG/5ML ORAL SOL PO SCH ×4 (05:34→22:00)
[2021-02-04] MEDS: ACCU-CHEK COMFORT CURVE STRIP VI SCH ×3 (07:15→18:04)
[2021-02-04] MEDS: PHENYLEPHRINE IV 250 ML IV SCH ×4 (07:38→23:20)
[2021-02-04] MEDS: MIDAZOLAM DRIP 50 mg/50mL 50 ML IV SCH ×6 (07:39→21:00)
[2021-02-04] MEDS: NOREPINEPHRINE 8 MG/250ML KIT 250 ML IV SCH ×3 (07:39→11:09)
[2021-02-04] MEDS: MEROPENEM 1GM IVPB 100 ML IV SCH ×2 (08:01→20:21)
[2021-02-04 09:58] LABS: Hematocrit 33.1 % (41.0-53.0); Hemoglobin 10.9 g/dL (13.5-17.5); Mean Corpuscular Hemoglobin 28.6 pg (28.0-32.0); Mean Corpuscular Volume 86.9 fL (80.0-100.0); Platelet Count (auto) 132 10^3/uL (140-450); Red Blood Cells 3.81 10^6/uL (4.5-5.90); Red Cell Distribution Width 16.6 % (11.8-14.3); White Blood Cell 22.6 10^3/uL (4.4-10.8)
[2021-02-04 10:08] LABS: Albumin 2.5 g/dL (3.4-5.0); Calcium 8.2 mg/dL (8.5-10.1); Potassium 3.5 mmol/L (3.5-5.1)
[2021-02-04 10:13] LABS: Bilirubin, Total 0.7 mg/dL (0.2-1.0); Total Protein 4.6 g/dL (6.4-8.2)
[2021-02-04 10:17] LABS: Basophils % (manual) 0 (0.0-2.0); Blast Cells 0; Eosinophils % (manual) 0 (0-7); Myelocytes % 0; Promyelocytes % 0; Reactive Lymphocytes 0
[2021-02-04] MEDS: FLUCONAZOLE 200MG/100ML 100 ML IV SCH (10:47)
[2021-02-04] MEDS: PANTOPRAZOLE 40 MG/10 ML VIAL INJ IV SCH ×2 (10:55→22:00)
[2021-02-04] MEDS: VASOPRESSIN 50 UNITS in D5W 5% 247.5 ML IV SCH (11:00)
[2021-02-04 11:53] LABS: Band Neutrophils % (manual) 2; Lymphocytes % (manual) 15 (10.0-50.0); Metamyelocytes % 1; Monocytes % (manual) 12 (0-12)
[2021-02-04] MEDS: EPINEPHrine HCL 250 ML IV SCH (12:30)
[2021-02-04] MEDS ORDERED: FUROSEMIDE 20 MG/2 ML VIAL ONE (13:50)
[2021-02-04] MEDS ORDERED: FUROSEMIDE 20 MG/2 ML VIAL IV ONE (14:00)
[2021-02-04] MEDS: fentaNYL Drip 2500mCg/250mlNS 250 ML IV SCH (14:35)
[2021-02-05] VITALS (28 sets, daily range): BP systolic 109–146; BP diastolic 75–105
[2021-02-05] MEDS: MIDAZOLAM DRIP 50 mg/50mL 50 ML IV SCH ×3 (00:20→07:00)
[2021-02-05 04:29] LABS: Hematocrit 32.8 % (41.0-53.0); Mean Corpuscular Hemoglobin 29.1 pg (28.0-32.0); Mean Corpuscular Hgb Conc. 33.4 g/dL (32.0-36.0); Mean Corpuscular Volume 87.2 fL (80.0-100.0); Platelet Count (auto) 130 10^3/uL (140-450); Red Blood Cells 3.76 10^6/uL (4.5-5.90); Red Cell Distribution Width 16.3 % (11.8-14.3); White Blood Cell 18.1 10^3/uL (4.4-10.8)
[2021-02-05 04:48] LABS: Potassium 3.1 mmol/L (3.5-5.1)
[2021-02-05 04:51] LABS: Basophils % (manual) 0 (0.0-2.0); Blast Cells 0; Metamyelocytes % 0; Promyelocytes % 0; Reactive Lymphocytes 0
[2021-02-05 04:57] LABS: Albumin 2.2 g/dL (3.4-5.0); BUN/Creatinine Ratio 40.4; Bilirubin, Total 0.8 mg/dL (0.2-1.0); Calcium 7.8 mg/dL (8.5-10.1); Magnesium 1.9 mg/dL (1.6-2.6); Phosphorus 1.2 mg/dL (2.5-4.90); Total Protein 4.5 g/dL (6.4-8.2)
[2021-02-05 05:31] LABS: Band Neutrophils % (manual) 2; Lymphocytes % (manual) 13 (10.0-50.0)
[2021-02-05 05:32] LABS: Eosinophils % (manual) 1 (0-7); Monocytes % (manual) 13 (0-12); Myelocytes % 2
[2021-02-05] MEDS: metroNIDAZOLE 500MG/100ML 100 ML IV SCH ×3 (05:48→21:52)
[2021-02-05] MEDS: VANCOMYCIN HCL 125MG/5ML ORAL SOL PO SCH ×4 (05:49→21:53)
[2021-02-05] MEDS: ACCU-CHEK COMFORT CURVE STRIP VI SCH ×5 (05:51→23:41)
[2021-02-05] MEDS: InsuLIN REG 1unit/0.01ml Soln (100units/ml) SC SCH ×5 (05:51→23:40)
[2021-02-05] MEDS: PHENYLEPHRINE IV 250 ML IV SCH (07:40)
[2021-02-05] MEDS: MEROPENEM 1GM IVPB 100 ML IV SCH ×3 (08:28→23:32)
[2021-02-05] MEDS: POTASSIUM CHL 20MEQ/100ML 100 ML IV SCH ×2 (08:28→18:49)
[2021-02-05] MEDS ORDERED: POTASSIUM CHLORIDE 20 MEQ, LIDOCAINE 1% (LOCAL ANESTH.) 2 ML in SODIUM CHL 0.9% 100 ML IV ONE (09:00)
[2021-02-05] MEDS ORDERED: FUROSEMIDE 20 MG/2 ML VIAL IV ONE (09:00)
[2021-02-05] MEDS ORDERED: POTASSIUM PHOSPHATE 44 MEQ in D5W 5% 250 ML IV ONE (09:00)
[2021-02-05] MEDS: PANTOPRAZOLE 40 MG/10 ML VIAL INJ IV SCH ×2 (10:26→21:53)
[2021-02-05] MEDS: FLUCONAZOLE 200MG/100ML 100 ML IV SCH (11:56)
[2021-02-05] MEDS: ALBUTEROL SULF 2.5 MG/0.5ML(0.5%) NEB SOLN NEB PRN (15:32)
[2021-02-05] MEDS: IPRATROPIUM BROM 0.5 MG/2.5ML INH SOL NEB PRN (15:32)
[2021-02-05] MEDS ORDERED: LORazepam 2MG/ML-1ML VIAL ONE (15:44)
[2021-02-05] MEDS: LORazepam 2MG/ML-1ML VIAL IV PRN ×2 (15:54→21:53)
[2021-02-06] VITALS (30 sets, daily range): BP systolic 123–150; BP diastolic 91–113
[2021-02-06 04:24] LABS: Hematocrit 34.8 % (41.0-53.0); Hemoglobin 11.6 g/dL (13.5-17.5); Mean Corpuscular Hemoglobin 28.5 pg (28.0-32.0); Mean Corpuscular Hgb Conc. 33.2 g/dL (32.0-36.0); Mean Corpuscular Volume 85.9 fL (80.0-100.0); Platelet Count (auto) 159 10^3/uL (140-450); Red Blood Cells 4.05 10^6/uL (4.5-5.90); Red Cell Distribution Width 16.5 % (11.8-14.3)
[2021-02-06 04:34] LABS: Basophils % (manual) 0 (0.0-2.0); Blast Cells 0; Metamyelocytes % 0; Myelocytes % 0; Promyelocytes % 0; Reactive Lymphocytes 0
[2021-02-06 04:36] LABS: Potassium 3.6 mmol/L (3.5-5.1)
[2021-02-06 04:42] LABS: BUN/Creatinine Ratio 44.4; Calcium 7.8 mg/dL (8.5-10.1); Magnesium 1.6 mg/dL (1.6-2.6); Phosphorus 1.3 mg/dL (2.5-4.90)
[2021-02-06] MEDS: LORazepam 2MG/ML-1ML VIAL IV PRN ×3 (04:51→22:13)
[2021-02-06 04:52] LABS: Band Neutrophils % (manual) 2; Eosinophils % (manual) 1 (0-7); Lymphocytes % (manual) 13 (10.0-50.0); Monocytes % (manual) 11 (0-12)
[2021-02-06] MEDS: VANCOMYCIN HCL 125MG/5ML ORAL SOL PO SCH ×4 (05:43→22:00)
[2021-02-06] MEDS: metroNIDAZOLE 500MG/100ML 100 ML IV SCH ×2 (05:43→14:32)
[2021-02-06] MEDS: ACCU-CHEK COMFORT CURVE STRIP VI SCH ×4 (05:48→23:48)
[2021-02-06] MEDS: InsuLIN REG 1unit/0.01ml Soln (100units/ml) SC SCH ×4 (05:48→23:48)
[2021-02-06] MEDS: MEROPENEM 1GM IVPB 100 ML IV SCH ×2 (08:00→17:15)
[2021-02-06] MEDS: FLUCONAZOLE 200MG/100ML 100 ML IV SCH (10:00)
[2021-02-06] MEDS: IPRATROPIUM BROM 0.5 MG/2.5ML INH SOL NEB PRN (10:03)
[2021-02-06] MEDS: ALBUTEROL SULF 2.5 MG/0.5ML(0.5%) NEB SOLN NEB PRN (10:04)
[2021-02-06] MEDS: PANTOPRAZOLE 40 MG/10 ML VIAL INJ IV SCH ×2 (10:55→22:06)
[2021-02-06] MEDS ORDERED: POTASSIUM PHOSPHATE 44 MEQ in D5W 5% 250 ML IV ONE ×2 (12:15→18:45)
[2021-02-06] MEDS ORDERED: hydrALAZINE HCL 20 MG/ML VL IV PRN (15:30)
[2021-02-06] MEDS ORDERED: LABETALOL HCL 5 MG/ML 4ML SYRINGE IV PRN (15:30)
[2021-02-06] MEDS ORDERED: METOPROLOL TARTRATE 1MG/1ML-5ML VIAL IV ONE ×2 (15:30)
[2021-02-06] MEDS ORDERED: MAGNESIUM SULFATE 1GM/100ML 100 ML IV ONE (16:00)
[2021-02-06] MEDS ORDERED: POTASSIUM CHLORIDE 40 MEQ, LIDOCAINE 1% (LOCAL ANESTH.) 4 ML in SODIUM CHL 0.9% 250 ML IV ONE (16:00)
[2021-02-06] MEDS: D5W 5% 1,000 ML IV SCH (17:15)
[2021-02-07] VITALS (23 sets, daily range): BP systolic 48–140; BP diastolic 27–102
[2021-02-07] MEDS: metroNIDAZOLE 500MG/100ML 100 ML IV SCH ×2 (00:35→05:50)
[2021-02-07] MEDS: D5W 5% 1,000 ML IV SCH (01:35)
[2021-02-07] MEDS: MEROPENEM 1GM IVPB 100 ML IV SCH ×2 (01:54→11:23)
[2021-02-07 04:54] LABS: Hematocrit 34.4 % (41.0-53.0); Hemoglobin 11.2 g/dL (13.5-17.5); Mean Corpuscular Hemoglobin 28.5 pg (28.0-32.0); Mean Corpuscular Hgb Conc. 32.7 g/dL (32.0-36.0); Platelet Count (auto) 199 10^3/uL (140-450); Red Blood Cells 3.95 10^6/uL (4.5-5.90); Red Cell Distribution Width 17.3 % (11.8-14.3); White Blood Cell 21.4 10^3/uL (4.4-10.8)
[2021-02-07 05:09] LABS: Potassium 3.7 mmol/L (3.5-5.1)
[2021-02-07 05:14] LABS: Calcium 7.7 mg/dL (8.5-10.1)
[2021-02-07 05:16] LABS: Basophils % (manual) 0 (0.0-2.0); Blast Cells 0; Metamyelocytes % 0; Myelocytes % 0; Promyelocytes % 0; Reactive Lymphocytes 0
[2021-02-07] MEDS: ACCU-CHEK COMFORT CURVE STRIP VI SCH (05:47)
[2021-02-07] MEDS: VANCOMYCIN HCL 125MG/5ML ORAL SOL PO SCH (05:47)
[2021-02-07] MEDS: InsuLIN REG 1unit/0.01ml Soln (100units/ml) SC SCH (05:47)
[2021-02-07 06:09] LABS: Band Neutrophils % (manual) 3; Eosinophils % (manual) 1 (0-7); Lymphocytes % (manual) 11 (10.0-50.0); Monocytes % (manual) 15 (0-12)
[2021-02-07 07:30] LABS: INR 1.32 (0.9-1.15); Partial Thromboplastin Time 25.4 sec (23.0-31.2)
[2021-02-07] MEDS ORDERED: D5W 5% 1,000 ML IV SCH (09:15)
[2021-02-07] MEDS ORDERED: MIDAZOLAM HCL 1MG/1ML-2 ML VIAL ONE (09:28)
[2021-02-07] MEDS ORDERED: fentaNYL CITRATE 100 MCG/2 ML VL ONE (09:28)
[2021-02-07] MEDS ORDERED: LIDOCAINE 2%HCL (LOCAL ANESTH.) INJ 20ML MDV ONE (09:28)
[2021-02-07] MEDS ORDERED: IODIXANOL 320MG/ML 100ML BTL IV ONE (10:49)
[2021-02-07] MEDS: FLUCONAZOLE 200MG/100ML 100 ML IV SCH (11:23)
[2021-02-07] MEDS: PANTOPRAZOLE 40 MG/10 ML VIAL INJ IV SCH (11:24)
[2021-02-07] MEDS ORDERED: MORPHINE SULF INJ 2 MG/ML SYRINGE 1ML IV PRN (14:00)
[2021-02-07] MEDS ORDERED: LORazepam 2MG/ML-1ML VIAL IV PRN (14:00)
[2021-02-07] MEDS ORDERED: MORPHINE SULF INJ 2 MG/ML SYRINGE 1ML ONE (14:25)
[2021-02-07] MEDS ORDERED: LORazepam 2MG/ML-1ML VIAL ONE (14:25)
== END 2021-02-07 18:30 | DRG 870 ==
LOC: EDBD 08:17 → ER 08:17 → TELE 12:24 → ICU WEST 13:29
PROVIDERS: ADMIT Nurse Practitioner Acute Care; ATTEND Internal Medicine
PROC: 5A1955Z Respiratory Ventilation, Greater than 96 Consecutive Hours (ICD-10-PCS; principal; 2021-01-30)
PROC: 0BH17EZ Insertion of Endotracheal Airway into Trachea, Via Natural or Artificial Opening (ICD-10-PCS; 2021-01-30)
PROC: 30233N1 Transfusion of Nonautologous Red Blood Cells into Peripheral Vein, Percutaneous Approach (ICD-10-PCS; 2021-02-02)
PROC: 5A09357 Assistance with Respiratory Ventilation, Less than 24 Consecutive Hours, Continuous Positive Airway Pressure (ICD-10-PCS; 2021-02-05)
PROC: 5A09357 Assistance with Respiratory Ventilation, Less than 24 Consecutive Hours, Continuous Positive Airway Pressure (ICD-10-PCS; 2021-02-06)
PROC: 06H03DZ Insertion of Intraluminal Device into Inferior Vena Cava, Percutaneous Approach (ICD-10-PCS; 2021-02-07)
DX: A41.9 Sepsis, unspecified organism (principal); J96.01 Acute respiratory failure with hypoxia; N17.0 Acute kidney failure with tubular necrosis; R65.21 Severe sepsis with septic shock; G93.41 Metabolic encephalopathy; I21.A1 Myocardial infarction type 2; J15.6 Pneumonia due to other Gram-negative bacteria; K26.4 Chronic or unspecified duodenal ulcer with hemorrhage; E87.4 Mixed disorder of acid-base balance; I31.3 Pericardial effusion (noninflammatory); D62 Acute posthemorrhagic anemia; I82.4Z2 Acute embolism and thrombosis of unspecified deep veins of left distal lower extremity; L03.116 Cellulitis of left lower limb; L03.115 Cellulitis of right lower limb; Z99.11 Dependence on respirator [ventilator] status; N39.0 Urinary tract infection, site not specified; Z66 Do not resuscitate; E87.5 Hyperkalemia; K21.00 Gastro-esophageal reflux disease with esophagitis, without bleeding; K44.9 Diaphragmatic hernia without obstruction or gangrene; M10.9 Gout, unspecified; Z20.822 Contact with and (suspected) exposure to COVID-19; J43.9 Emphysema, unspecified; Z51.5 Encounter for palliative care; I50.9 Heart failure, unspecified; Z88.2 Allergy status to sulfonamides
CPT/HCPCS: 31500; 36415; 36556; 36600; 37191; 37619; 70450; 71045; 71250; 74176; 76942; 80048; 80053; 80202; 81001; 82805; 82962; 83605; 83735; 83880; 84100; 84484; 85007; 85014; 85018; 85027; 85610; 85730; 86850; 86900; 86901; 86920; 87040; 87070; 87081; 87086; 87088; 87205; 87426; 93005; 93306; 93970; 94002; 94003; 94640; 94645; 94660; 96365; 96368; 99152; 99291; C9113; G0378; J0330; J0696; J1450; J1815; J2001; J2185; J2250; J3480; J3490; J7060; P9047; Q9967